=== PATIENT | male | born 1965 | race Caucasian/White ===

== ENCOUNTER 2021-08-06 13:36 | Inpatient (IN) | payer MEDICARE, MEDICAID ==
[2021-08-06] VITALS (10 sets, daily range): BP systolic 116–141; BP diastolic 67–83; PULSE 75–89; TEMP 89.8–98.8
[~2021-08-06] VITALS: Ht 152.4 cm; Wt 66.5 kg
--- NOTE | 2021-08-06 16:27 | NUR ---
To surgery with surgical staff at this time.
[2021-08-06] MEDS ORDERED: TYLENOL 500MG500 MG PO (17:33)
[2021-08-06] MEDS ORDERED: LOPID 600M600 MG/TAB PO (17:34)
[2021-08-06] MEDS ORDERED: ATARAX 25MG25 MG/TAB PO (17:35)
[2021-08-06] MEDS ORDERED: IMODIUM 2MG CAPS2 MG PO (17:36)
[2021-08-06] MEDS ORDERED: LAMICTAL 100MG100 MG PO (17:36)
[2021-08-06] MEDS ORDERED: MELATIN 3 MG-11 TAB PO (17:37)
[2021-08-06] MEDS ORDERED: MUCINEX 60600 MG/TA1 PO (17:38)
[2021-08-06] MEDS ORDERED: MULTIPLE VITAMI1 TA5 PO (17:38)
[2021-08-06] MEDS ORDERED: PRIL40 PO (17:39)
[2021-08-06] MEDS ORDERED: RISPERDAL 0.5M0.5 MG PO (17:39)
[2021-08-06] MEDS ORDERED: RISPERDAL 1M1 MG/TAB PO (17:40)
[2021-08-06] MEDS ORDERED: ZOLOFT 25MG25 MG PO (17:41)
[2021-08-06] MEDS ORDERED: SINGULAIR 110 MG/TAB PO (17:42)
--- NOTE | 2021-08-06 19:45 | NUR ---
PT RETURNED FROM PACU PER BED. PT AWAKE AND ORIENTED. TAKING PO FLUIDS. NO NAUSEA. VSS. CALLIGHT IN REACH. BED ALARM SET. MIDLINE ABD INCISION HAS TINY AMT OF BLOODY DRG NOTED. LT LAT ABD INCISION CDI.
--- NOTE | 2021-08-06 21:19 | NUR ---
SEE MAR FOR PAIN MED GIVEN EARLIER.
--- NOTE | 2021-08-06 22:47 | NUR ---
PT RESTING COMFORTABLY NOW.
[2021-08-07 03:43] VITALS: BP 103/63; PULSE 79; TEMP 97.7
[2021-08-07 06:45] LABS: HEMOGLOBIN 13.4 g/dl (13.5-18.0); MEAN CELL VOLUME 86 fl (80.0-100.0); MEAN CORPUSCULAR HEMOGLOBIN 30 pg (27.0-31.0); MEAN CORPUSCULAR HGB CONC 34 g/dl (33.0-37.0); MEAN PLATELET VOLUME 10.8 fl (7.4-10.4); PLATELET COUNT 278 K/mm3 (130-400); RED BLOOD COUNT 4.53 M/mm3 (4.20-5.60); REDCELL DISTRIBUTION WIDTH-CV 12.4 % (11.5-14.5)
[2021-08-07 07:07] LABS: BILIRUBIN,TOTAL 0.3 mg/dL (0.2-1.2); CALCIUM 9.4 mg/dL (8.4-10.2); CREATININE, serum 1.01 mg/dL (0.72-1.25); POTASSIUM 4.4 mmol/L (3.5-4.5); TOTAL PROTEIN 6.7 gm/dL (6.2-8.1)
--- NOTE | 2021-08-07 07:30 | NUR ---
WBC 22.[address] Rousseau.
[2021-08-07 08:02] LABS: BAND 15 % (0-10); LYMPHOCYTE 5 % (20.0-51.0); METAMYELOCYTE 1 % (0-0); NEUTROPHILS 77 % (42.0-75.2); PLATELET ESTIMATE NORMAL (NORMAL)
[2021-08-07 08:03] LABS: ANISOCYTOSIS 1+; HYPOCHROMIA 1+
--- NOTE | 2021-08-07 08:09 | NUR ---
Fall risk protocol initiated, signage placed, yellow gown and non skid socks applied. Increased fall risk r/t recent surgery and cognitive status. SCDs applied and post op exercises reviewed with patient.
[2021-08-07 08:10] VITALS: BP 120/74; PULSE 84; TEMP 98
--- NOTE | 2021-08-07 10:34 | NUR ---
Initial visit; Patient thanked Him Tech for looking in on him, offering God's blessings and keeping him in her prayers.
[2021-08-07 11:52] VITALS: BP 120/78; PULSE 81; TEMP 98.3
--- NOTE | 2021-08-07 12:03 | NUR ---
Patient alert, oriented to self and situation. See assessment. Midline incision and lap site to abdomen with dressing CDI. Bowel sounds absent x4 quads. No flatus. Post op exercises reviewed with patient, will need reinforced. No c/o at this time.
--- NOTE | 2021-08-07 14:23 | NUR ---
Personnel And Payroll Technician met with patient to discuss discharge planning. Patient has a developmental delay but was able to answer most questions. [place] [facility] in [place]. Patient provided a business card for Chela, Water Server of [facility] (ph#[phone]). SW contacted Chela who confirmed [place] a [place] and is normally independent with ADLS. Patient has a Guardian, Malaika Jesús (ph#[phone]). Chela reports she will fax it to the surgical unit to be placed on patient's chart. Chela advised that at time of discharge, they will cook pickled meat patient. NORBERT then contacted Malaika to provide update. Malaika states they will will be here Tuesday to see patient. Malaika requested patient's RN call with an update. NORBERT passed this along to patient's RN. Discharge Plan: [facility]
[2021-08-07 15:53] VITALS: BP 131/88; PULSE 91; TEMP 97.9
[2021-08-07 19:18] VITALS: BP 149/88; PULSE 102; TEMP 98.1
[2021-08-08] VITALS (7 sets, daily range): BP systolic 118–137; BP diastolic 46–96; PULSE 84–124; TEMP 97.6–98.5
--- NOTE | 2021-08-08 06:00 | NUR ---
pt taking norco for pain, dilaudid given this am @0445 for pain unrelieved from po meds, zofran given @0430 for nausea/dry heaves. chris patent/secure, pt asking appropriate questions, dressing to abd CDI
--- NOTE | 2021-08-08 07:51 | NUR ---
Pt. progressing w/ plan of care. Pt. initially reported no pain but as this RN assessed him he reports "his tummy hurts." Pt. is able to tell this RN he is in [place], [place] but does not know date/year.
--- NOTE | 2021-08-08 13:30 | NUR ---
Pt. progressing w/ plan of care. Pt.'s abdominal dressing removed and catie open to air, per Dr. Alexander's verbal order. Pt. has ambulated in his room twice today, about 10 feet each time. Pt. encouraged to get OOB in the chair. Pt. was OOB in the chair for 1.5 hours this AM but refused to get OOB to the chair around lunchtime. Pt.'s pain is controlled w/ PRN norco throughout the day.
--- NOTE | 2021-08-08 13:51 | NUR ---
PT UNABLE TO DO I.S.
[2021-08-08 15:08] LABS: HEMATOCRIT 39.6 % (42.0-52.0); HEMOGLOBIN 13.4 g/dl (13.5-18.0); MEAN CELL VOLUME 87 fl (80.0-100.0); MEAN CORPUSCULAR HEMOGLOBIN 29 pg (27.0-31.0); MEAN CORPUSCULAR HGB CONC 34 g/dl (33.0-37.0); MEAN PLATELET VOLUME 9.7 fl (7.4-10.4); PLATELET COUNT 285 K/mm3 (130-400); RED BLOOD COUNT 4.57 M/mm3 (4.20-5.60); REDCELL DISTRIBUTION WIDTH-CV 12.6 % (11.5-14.5)
[2021-08-08 15:19] LABS: ALBUMIN 2.6 gm/dL (3.5-5.0); BILIRUBIN,TOTAL 0.3 mg/dL (0.2-1.2); CREATININE, serum 0.87 mg/dL (0.72-1.25); TOTAL PROTEIN 6.3 gm/dL (6.2-8.1)
--- NOTE | 2021-08-08 15:23 | NUR ---
CRITICAL WBC CALLED TO 21.7. UPDATE GIVEN. ORDERS TO DC RANI
[2021-08-08 15:48] LABS: BAND 5 % (0-10); LYMPHOCYTE 8 % (20.0-51.0); MYELOCYTE 1 % (0-0); NEUTROPHILS 85 % (42.0-75.2); NUCLEATED RED BLOOD CELL 1 (0-6)
[2021-08-08 15:50] LABS: PLATELET ESTIMATE NORMAL (NORMAL)
--- NOTE | 2021-08-08 17:19 | NUR ---
Pt.'s HR elevated this evening. Pt. vomited his ensure this afternoon, possibly because he drank the ensure too quickly. The pt. had food this evening and he belched and vomited a small amount as well. Dr. Alexander notified on the telephone. Dr. Rousseau familiar with pt.'s case as well & Dr. Rousseau notified. All other vital signs stable. Pt. is asymptomatic. Pt. requesting to go for a walk and denies pain.
--- NOTE | 2021-08-08 19:00 | NUR ---
This RN encouraged pt. to use incentive spirometer, however pt. could not correctly use the IS after explanation. Dr. Alexander notified on the telephone when discussing pt.'s elevated HR.
[2021-08-09] VITALS (8 sets, daily range): BP systolic 110–158; BP diastolic 69–94; PULSE 88–121; TEMP 97.7–98.9
--- NOTE | 2021-08-09 06:52 | NUR ---
Report received from CARLA Toussaint. Pt. resting in bed w/ eyes closed. Bed alarm on, call light in reach.
[2021-08-09 07:08] LABS: HEMATOCRIT 37.6 % (42.0-52.0); HEMOGLOBIN 12.5 g/dl (13.5-18.0); MEAN CELL VOLUME 89 fl (80.0-100.0); MEAN CORPUSCULAR HEMOGLOBIN 29 pg (27.0-31.0); MEAN CORPUSCULAR HGB CONC 33 g/dl (33.0-37.0); MEAN PLATELET VOLUME 10.2 fl (7.4-10.4); PLATELET COUNT 252 K/mm3 (130-400); RED BLOOD COUNT 4.25 M/mm3 (4.20-5.60); REDCELL DISTRIBUTION WIDTH-CV 12.5 % (11.5-14.5)
[2021-08-09 07:18] LABS: ALBUMIN 2.3 gm/dL (3.5-5.0); BILIRUBIN,TOTAL 0.3 mg/dL (0.2-1.2); CALCIUM 8.1 mg/dL (8.4-10.2); CREATININE, serum 0.85 mg/dL (0.72-1.25); POTASSIUM 4.4 mmol/L (3.5-4.5); TOTAL PROTEIN 5.7 gm/dL (6.2-8.1)
--- NOTE | 2021-08-09 07:23 | NUR ---
Pt. slowly progressing w/ plan of care. Pt. reports pain feels worse today compared to yesterday. Assessment complete. WBCs critically elevated this AM. HR tachy. Plan to take vitals and call Dr. Alexander to notify.
--- NOTE | 2021-08-09 07:30 | NUR ---
pain meds requested x3 this shift, norco given twice and dilaudid x1 for breakthru pain, up to restroom with hand held assist, voiding well. IVF @75cc/hr taking po well.
--- NOTE | 2021-08-09 07:46 | NUR ---
This RN took vitals on pt. and his O2 sat was 80%. Pt.'s HR was 121. Dr. Alexander notified. New orders obtained for a stat CXR and a hospitalist consult. Dr. Gonzáles notified on the telephone and reports he will see the patient. X-ray tech Janeth called, Janeth reports she has one stat x-ray to complete first and she will then see this patient.
[2021-08-09 11:49] LABS: BAND 3 % (0-10); EOSINOPHIL 1 % (0-4); LYMPHOCYTE 7 % (20.0-51.0); NEUTROPHILS 86 % (42.0-75.2); PLATELET ESTIMATE NORMAL (NORMAL)
--- NOTE | 2021-08-09 18:55 | NUR ---
Pt. progressing w/ plan of care. Pt. went for CT this evening. Pt. back from CT and was refusing to walk after encouragement. Pt. also did not want to eat. Pt. resting in bed w/ eyes closed at this time. O2 on. Call light and belongings in reach, bed alarm on. Plan to give report to night RN.
--- NOTE | 2021-08-09 20:30 | NUR ---
PT RESTING IN BED. O2 4L N/C. NO DYSPNEA NOTED. PT DROWSY. PT UNABLE TO FOLLOW INSTRUCTION TO USE IS. ENC COUGH AND DEEP BREATH. PT DROWSY AT THIS TIME. USE URIANL- VOIDING W/O DIFFICULTY.
--- NOTE | 2021-08-10 02:58 | NUR ---
PT HAS TO BE REMINDED TO KEEP O2 ON.
[2021-08-10 03:13] VITALS: BP 113/78; PULSE 98; TEMP 98.3
[2021-08-10 06:56] LABS: HEMOGLOBIN 11.7 g/dl (13.5-18.0); MEAN CELL VOLUME 88 fl (80.0-100.0); MEAN CORPUSCULAR HEMOGLOBIN 29 pg (27.0-31.0); MEAN CORPUSCULAR HGB CONC 33 g/dl (33.0-37.0); MEAN PLATELET VOLUME 10.3 fl (7.4-10.4); PLATELET COUNT 260 K/mm3 (130-400); RED BLOOD COUNT 4.01 M/mm3 (4.20-5.60); REDCELL DISTRIBUTION WIDTH-CV 12.7 % (11.5-14.5)
[2021-08-10 06:58] LABS: HEMATOCRIT 35.4 % (42.0-52.0)
[2021-08-10 07:04] LABS: ALBUMIN 2.2 gm/dL (3.5-5.0); BILIRUBIN,TOTAL 0.2 mg/dL (0.2-1.2); CALCIUM 8.9 mg/dL (8.4-10.2); CREATININE, serum 0.78 mg/dL (0.72-1.25); TOTAL PROTEIN 5.8 gm/dL (6.2-8.1)
[2021-08-10 07:56] VITALS: BP 121/79; PULSE 102; TEMP 97.6
--- NOTE | 2021-08-10 08:00 | NUR ---
PATIENT IS ORIENTED X2. PATIENT HAS SPECIAL NEEDS AND LIVES IN A DEVELOPMENTAL FACILITY IN [place]. VSS. PATIENT IS STILL ON 4L PER NC TO KEEP SATS ABOVE 92%. REPORTS PAIN IS WELL MANAGED. ABD IS ROUND, SOFT AND WITH POSITIVE BOWL SOUNDS. NO C/O N/V. PATIENT TOLERATING FULL LIQUID DIET WELL. BREAKFAST TRAY AT BEDSIDE. AM MEDS GIVEN WITHOUT ANY ISSUES. HEAD TO TOE ASSESSMENT COMPLETE, SEE CHARTING. IV FLUIDS INFUSING VIA PUMP INTO LEFT FORARM IV VIA PUMP. NO OTHER NEEDS AT THIS TIME. CALL LIGHT IN REACH.
[2021-08-10 09:13] LABS: BAND 17 % (0-10); EOSINOPHIL 1 % (0-4); LYMPHOCYTE 5 % (20.0-51.0); NEUTROPHILS 68 % (42.0-75.2); PLATELET ESTIMATE NORMAL (NORMAL)
[2021-08-10 11:08] VITALS: BP 118/80; PULSE 115; TEMP 97.5
[2021-08-10 15:21] VITALS: BP 136/87; PULSE 111; TEMP 97.1
--- NOTE | 2021-08-10 16:15 | NUR ---
PATIENT HAS WENT FOR SEVERAL WALKS TODAY IN THE HALLS. NOTED PATIENT BELCHING WITH GETTING UP. TOLERATING FULL LIQUIDS WELL, NO C/O N/V. POSITIVE BOWL SOUNDS.
[2021-08-10 19:25] VITALS: BP 121/76; PULSE 115; TEMP 98.5
--- NOTE | 2021-08-10 20:00 | NUR ---
PT IN BED, ORIENTED X3. TAKES HS MEDS, DENIES PAIN TO ABDOMEN AT THIS TIME. SL TO LEFT HAND, IV ANTIBIOTIC GIVEN. VOIDING YELLOW URINE PER URINAL. ABDOMEN FIRM, ROUNDED WITH ACTIVE BS, MIDLINE INCISION SECURITY SCREENER WITH KARINA INTACT.
--- NOTE | 2021-08-10 20:30 | NUR ---
PT ASSISTED TO BATHROOM FOR BM, NO SUCCESS AND BACK TO BED. HAS STEADY GAIT WITH WALKER. WEARING OXYGEN AT 3L/NC. SHORTNESS OF BREATH WITH ACTIVITY NOTED.
[2021-08-10 23:14] VITALS: BP 115/73; PULSE 107; TEMP 97.8
[2021-08-11 03:10] VITALS: BP 117/72; PULSE 103; TEMP 97.8
--- NOTE | 2021-08-11 05:45 | NUR ---
TAKES SCHEDULED AM MED. NO REQUEST FOR PAIN MEDS AT THIS TIME. OXYGEN AT 3L/NC.
[2021-08-11 07:22] VITALS: BP 119/76; PULSE 100; TEMP 98.6
--- NOTE | 2021-08-11 08:00 | NUR ---
PATIENT IS ORIENTED X2. PATIENT HAS SPECIAL NEEDS AND LIVES IN A DEVELOPMENTAL FACILITY IN [place]. VSS. PATIENT IS ON 3L PER NC TO KEEP SATS ABOVE 92%. REPORTS PAIN IS WELL MANAGED. ABD IS ROUND, SOFT AND WITH POSITIVE BOWL SOUNDS. NO C/O N/V. PATIENT TOLERATING FULL LIQUID DIET WELL. BREAKFAST TRAY AT BEDSIDE. AM MEDS GIVEN WITHOUT ANY ISSUES. HEAD TO TOE ASSESSMENT COMPLETE, SEE CHARTING. LEFT FORARM IV TO INT. NO OTHER NEEDS AT THIS TIME. CALL LIGHT IN REACH.
[2021-08-11 10:15] LABS: HEMOGLOBIN 12.1 g/dl (13.5-18.0); MEAN CELL VOLUME 89 fl (80.0-100.0); MEAN CORPUSCULAR HEMOGLOBIN 30 pg (27.0-31.0); MEAN CORPUSCULAR HGB CONC 33 g/dl (33.0-37.0); MEAN PLATELET VOLUME 9.6 fl (7.4-10.4); PLATELET COUNT 290 K/mm3 (130-400); RED BLOOD COUNT 4.08 M/mm3 (4.20-5.60); REDCELL DISTRIBUTION WIDTH-CV 12.5 % (11.5-14.5)
[2021-08-11 10:22] LABS: HEMATOCRIT 36.3 % (42.0-52.0)
[2021-08-11 10:27] LABS: CALCIUM 8.2 mg/dL (8.4-10.2); CREATININE, serum 0.76 mg/dL (0.72-1.25); POTASSIUM 3.7 mmol/L (3.5-4.5)
[2021-08-11 10:59] LABS: BAND 6 % (0-10); EOSINOPHIL 4 % (0-4); LYMPHOCYTE 9 % (20.0-51.0); MYELOCYTE 1 % (0-0); NEUTROPHILS 77 % (42.0-75.2)
[2021-08-11 11:01] LABS: PLATELET ESTIMATE NORMAL (NORMAL)
[2021-08-11 11:30] VITALS: BP 108/68; PULSE 98; TEMP 98.4
--- NOTE | 2021-08-11 14:12 | NUR ---
NOTED SMALL, SEMI-LOOSE BM WHEN PATIENT WENT TO THE BATHROOM.
[2021-08-11 16:00] VITALS: BP 105/61; PULSE 101; TEMP 98.1
--- NOTE | 2021-08-11 16:02 | NUR ---
Automotive Sales Associate collaborated with RN who advised that patient is still requiring 3 liters of oxygen. Patient has been up ambulating the halls with a walker. NORBERT contacted Priyanka, Director of [facility] who advised patient can return on home oxygen, however she requested SW look into swing bed as it may benefit patient. Priyanka is concerned that [facility]'s room at the [facility] isn't very close to the nursing station so it may be better to go to . Priyanka suggested [facility] and [facility]. NORBERT contacted both facilities and was told by both DON's that they are full at this time. NORBERT updated Priyanka who advised they would be able to accept patient back on oxygen. NORBERT advised Priyanka that patient may be ready for discharge tomorrow and reviewed today's progress note. 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 NORBERT contacted [facility] in [place] and faxed a referral for oxygen. NORBERT will follow up with oxygen order at time of discharge. NORBERT contacted patient's Guardian, Malaika and provided update. Malaika is agreeable with plan to discharge back to [facility] when ready.
[2021-08-11 19:40] VITALS: BP 114/71; PULSE 102; TEMP 97.8
--- NOTE | 2021-08-11 22:00 | NUR ---
PT TAKES HS MEDS WITHOUT PROBLEM. WEARING OXYGEN AT 2L/NC. LUNGS SOUND IMPROVED AND HR NOT TACHY. SL TO LEFT HAND. HAS BEEN UP TO BATHROOM AND AMBULATING IN HALLWAY WITH ASSIST. KARINA INTACT TO ABD MIDLINE INCISION. VOIDING PER URINAL AND IN BATHROOM.
[2021-08-12] VITALS (8 sets, daily range): BP systolic 100–146; BP diastolic 58–94; PULSE 76–119; TEMP 97.6–98.1
[2021-08-12 08:15] LABS: HEMATOCRIT 37.3 % (42.0-52.0); HEMOGLOBIN 12.4 g/dl (13.5-18.0); MEAN CELL VOLUME 89 fl (80.0-100.0); MEAN CORPUSCULAR HEMOGLOBIN 30 pg (27-31); MEAN CORPUSCULAR HGB CONC 33 g/dl (33.0-37.0); PLATELET COUNT 345 K/mm3 (130-400); REDCELL DISTRIBUTION WIDTH-CV 12.7 % (11.5-14.5)
[2021-08-12 08:16] LABS: CALCIUM 9.2 mg/dL (8.4-10.2); CREATININE, serum 0.82 mg/dL (0.72-1.25); POTASSIUM 4.1 mmol/L (3.5-4.5)
[2021-08-12 09:10] LABS: BAND 1 % (0-10); EOSINOPHIL 1 % (0-4); LYMPHOCYTE 17 % (20.0-51.0); NEUTROPHILS 73 % (42.0-75.2)
--- NOTE | 2021-08-12 09:10 | NUR ---
Pt having no pain complaints at this time. He is stand by assist to the restroom. He is having loose stools, having to assist with hygiene as pt went to pull his underwear on without wiping. Incision well approximated with no drainage or redness noted, catie intact. Pt is very quick in his room, but is steady on his feet. Pt ate full breakfast, reports feeling full. Call light within reach
[2021-08-12 09:11] LABS: PLATELET ESTIMATE NORMAL (NORMAL)
--- NOTE | 2021-08-12 12:43 | NUR ---
Pt had been doing well, getting up and using the restroom and ambulating with no complaints. Approximately 15 minutes ago, he got up to use the restroom and started to complain of his stomach hurting. He did eat lunch with no problems. PRN pain medication given at this time
[2021-08-12] MEDS ORDERED: MOTRIN 600600 MG/TAB PO ×2 (12:55)
[2021-08-12] MEDS ORDERED: NORCO 325 MG-51 TAB PO ×2 (12:57)
[2021-08-12] MEDS ORDERED: FLAGYL500 MG PO ×2 (12:58)
[2021-08-12] MEDS ORDERED: AMOXICILLIN 8751 TAB PO ×2 (12:58)
--- NOTE | 2021-08-12 13:00 | NUR ---
Pt went in to restroom and had formed stool, did not collect specimen
--- NOTE | 2021-08-12 13:11 | NUR ---
Pt arrived back to the floor from Endo. Pt is alert and oriented, but having complaints of pain. He reports feels like when he had pancreatits before. Pt is very restless and cannot sit still in bed. Encouraged him to try and relax, will review orders to see what he can be given for pain
--- NOTE | 2021-08-12 15:35 | NUR ---
Pt in recliner in [facility] for karla barrios
--- NOTE | 2021-08-12 16:38 | NUR ---
Primary Clinician collaborated with Elizabeth MARADIAGA who advised patient will not need oxygen upon discharge. NORBERT contacted Priyanka, Director at [facility] to provide update. NORBERT collaborated with CARLA Villatoro who advised patient is having stomach pain and will have an xray. Shauna advised patient likely will not discharge today and she's updated [facility]. Discharge Plan: return to [facility].
--- NOTE | 2021-08-12 17:58 | NUR ---
Pt reported feeling better but stomach still bothering him some. I asked him if he was feeling anxious or nervous and he stated yes. It was reported to me from the staff that work with him at the halfway that when he gets nervous or anxious he has stomach pains. Pt did eat some of his dinner but not all of it as he has been previously. No other needs verbalized, call light within reach
--- NOTE | 2021-08-12 18:23 | NUR ---
Pt having complaints of a headache, PRN given
--- NOTE | 2021-08-12 20:00 | NUR ---
ASSISTED TO BR. HAD BM BUT PT FLUSHED IT. VOIDED PER URINAL EARLIER- CLEAR YELLOW URINE. PT BACK TO BED. TOOK HS MEDS W/O DIFFICULTY. PAIN MED HELPING WITH INCISIONAL PAIN RECEIVED EARLIER. CALL LIGHT IN REACH.
[2021-08-13 03:48] VITALS: BP 128/67; PULSE 69; TEMP 97.9
[2021-08-13 07:29] VITALS: BP 116/73; PULSE 99; TEMP 97.3
--- NOTE | 2021-08-13 08:24 | NUR ---
PT ASSESSED. ABD TENDER TO TOUCH. DISTENDED, FIRM. HYPOACTIVE BOWEL SOUNDS X4. PT COMPLAINS OF BELLY PAIN WITH DRY HEAVING NOTED. NPO FOR CT. PT IS ABLE TO HAVE LOOSE BM MULTIPLE TIMES THIS AM. NO OTHER CONCERNS OR COMPLAINTS. CALL LIGHT WITHIN REACH
[2021-08-13 08:29] LABS: HEMATOCRIT 38.8 % (42.0-52.0); HEMOGLOBIN 12.8 g/dl (13.5-18.0); MEAN CELL VOLUME 90 fl (80.0-100.0); MEAN CORPUSCULAR HEMOGLOBIN 30 pg (27-31); MEAN CORPUSCULAR HGB CONC 33 g/dl (33.0-37.0); MEAN PLATELET VOLUME 9.6 fl (7.4-10.4); PLATELET COUNT 332 K/mm3 (130-400); RED BLOOD COUNT 4.33 M/mm3 (4.20-5.60); REDCELL DISTRIBUTION WIDTH-CV 12.7 % (11.5-14.5)
[2021-08-13 08:54] LABS: BAND 14 % (0-10); EOSINOPHIL 3 % (0-4); LYMPHOCYTE 9 % (20.0-51.0); METAMYELOCYTE 1 % (0-0); NEUTROPHILS 64 % (42.0-75.2); PLATELET ESTIMATE NORMAL (NORMAL)
[2021-08-13 09:00] LABS: ALBUMIN 2.6 gm/dL (3.5-5.0); BILIRUBIN,TOTAL 0.1 mg/dL (0.2-1.2); CALCIUM 8.4 mg/dL (8.4-10.2); CREATININE, serum 0.84 mg/dL (0.72-1.25); TOTAL PROTEIN 6.4 gm/dL (6.2-8.1)
[2021-08-13 11:35] VITALS: BP 120/73; PULSE 101; TEMP 97.8
[2021-08-13 16:00] VITALS: BP 115/72; PULSE 95; TEMP 97.8
[2021-08-13 19:53] VITALS: BP 133/83; PULSE 96; TEMP 98
--- NOTE | 2021-08-13 20:59 | NUR ---
PT UP TO BR. HAD SMALL LOOSE STOOL WITH VOID, SEE MAR FOR PAIN MED GIVEN FOR ABD PAIN. CALL LIGHT IN REACH.
[2021-08-14 00:07] VITALS: BP 112/66; PULSE 85; TEMP 98.2
[2021-08-14 04:09] VITALS: BP 111/76; PULSE 89; TEMP 97.6
--- NOTE | 2021-08-14 04:31 | NUR ---
PT STILL HAVING THICK LOOSE STOOLS. SEE MAR FOR PAIN MEDS GIVEN. PT UP TO BR PER SELF INDEPENDENTLY.
[2021-08-14 07:37] VITALS: BP 122/85; PULSE 105; TEMP 98.4
[2021-08-14 08:45] LABS: HEMOGLOBIN 12.2 g/dl (13.5-18.0); MEAN CELL VOLUME 89 fl (80.0-100.0); MEAN CORPUSCULAR HEMOGLOBIN 30 pg (27-31); MEAN CORPUSCULAR HGB CONC 33 g/dl (33.0-37.0); MEAN PLATELET VOLUME 9.7 fl (7.4-10.4); PLATELET COUNT 304 K/mm3 (130-400); RED BLOOD COUNT 4.13 M/mm3 (4.20-5.60); REDCELL DISTRIBUTION WIDTH-CV 12.6 % (11.5-14.5)
[2021-08-14 08:49] LABS: HEMATOCRIT 36.8 % (42.0-52.0)
[2021-08-14 08:58] LABS: ALBUMIN 2.6 gm/dL (3.5-5.0); BILIRUBIN,TOTAL 0.2 mg/dL (0.2-1.2); CALCIUM 8.4 mg/dL (8.4-10.2); CREATININE, serum 0.83 mg/dL (0.72-1.25); MAGNESIUM 1.8 mg/dL (1.6-2.6); PHOSPHOROUS 2.7 mg/dL (2.3-4.7); POTASSIUM 3.9 mmol/L (3.5-4.5); TOTAL PROTEIN 6.1 gm/dL (6.2-8.1)
[2021-08-14 10:30] LABS: BAND 15 % (0-10); LYMPHOCYTE 19 % (20.0-51.0); METAMYELOCYTE 1 % (0-0); NEUTROPHILS 62 % (42.0-75.2); PLATELET ESTIMATE NORMAL (NORMAL)
--- NOTE | 2021-08-14 10:45 | NUR ---
Follow-up visit; Patient said he would like Rope Making Machine Operator to pray. Rope Making Machine Operator prayed "The Lord's Prayer" for Lance.
[2021-08-14 11:34] VITALS: BP 106/68; PULSE 87; TEMP 97.7
[2021-08-14] MEDS ORDERED: MOTRIN 600600 MG/TAB PO (13:51)
[2021-08-14] MEDS ORDERED: AMOXICILLIN 8751 TAB PO (13:51)
[2021-08-14] MEDS ORDERED: NORCO 325 MG-51 TAB PO (13:52)
[2021-08-14] MEDS ORDERED: FLAGYL500 MG PO (13:53)
--- NOTE | 2021-08-14 14:19 | NUR ---
Paper Control Clerk collaborated with Dr. Rousseau and RN about discharge plan. Patient to return to [facility] today. NORBERT followed up with Priyanka, Director and inquired about patient's DME usage. Patient does not normally use a walker but PT is recommending one. NORBERT faxed order/referral for walker to [facility] in [place] and notified Priyanka that order was sent to [place]. Priyanka advised she would arrange for staff to brick picker patient this afternoon. NORBERT faxed discharge orders to [facility] then contacted patient's guardian, Malaika to notify her of patient discharge. Discharge Plan: Return to [facility]
--- NOTE | 2021-08-14 14:56 | NUR ---
PT MET CRITERIA FOR DISCHARGE, VSS. PAIN CONTROLLED. IV REMOVED WITH NO COMPLICATIONS, CATHETER INTACT. STAPLE LINE C,D,I. DISCHARGE INSTRUCTIONS REVIEWED WITH PT AND STAFF MEMBER. PT VERBALIZED UNDERSTANDING. PT DC BACK TO CUSTODIAL VIA AMBULATION ACCOMPANIED BY STAFF.
== END 2021-08-14 13:00 | disposition home or self-care (01) | DRG 329 ==
LOC: SURG 13:36
PROVIDERS: Physician Assistant; Surgery; ADMIT Surgery
PROC: 0DBH0ZZ Excision of Cecum, Open Approach (ICD-10-PCS; 2021-08-06)
PROC: 0WJG4ZZ Inspection of Peritoneal Cavity, Percutaneous Endoscopic Approach (ICD-10-PCS; 2021-08-06)
PROC: 0DTJ0ZZ Resection of Appendix, Open Approach (ICD-10-PCS; principal; 2021-08-06 16:30)
DX: K35.33 Acute appendicitis with perforation, localized peritonitis, and gangrene, with abscess (principal); J96.01 Acute respiratory failure with hypoxia; J18.9 Pneumonia, unspecified organism; K56.7 Ileus, unspecified; K52.1 Toxic gastroenteritis and colitis; D72.829 Elevated white blood cell count, unspecified; T36.95XA Adverse effect of unspecified systemic antibiotic, initial encounter; F31.9 Bipolar disorder, unspecified; E78.5 Hyperlipidemia, unspecified
CPT/HCPCS: 99222; 99232-AI; 99233-AI; A4314; A9284; J0690; J0696; J1100; J1170; J1815; J1885; J2405; J2543; J3010; J7120; Q9967